=== PATIENT | male | born 1990 | race Caucasian/White ===

== ENCOUNTER 2021-09-03 06:15 | Emergency (ER) | payer OTHER, SELFPAY ==
[2021-09-03 06:18] VITALS: BP 127/57; PULSE 78; RESP 16; TEMP 35.7; O2SAT 100
--- NOTE | 2021-09-03 07:06 | ED.EYEPROB ---
HPI - Eye Problem General Chief complaint: Eye Problems <Prashant Spears DO - Last Filed: 09/03/21 07:10> Stated complaint: somethings in my eye <Prashant Spears DO - Last Filed: 09/03/21 07:10> Time Seen by Provider: 09/03/21 06:31 <Prashant Spears DO - Last Filed: 09/03/21 07:10> Source: patient <Prashant Spears DO - Last Filed: 09/03/21 07:10> Mode of arrival: ambulatory <Prashant Spears DO - Last Filed: 09/03/21 07:10> Limitations: no limitations <Prashant Spears DO - Last Filed: 09/03/21 07:10> History of Present Illness HPI Narrative: 30-year-old male presents emergency room secondary pain to his right. Is been going on since yesterday. Got worse throughout the night. He states he feels like he has something in his eye. He is not doing any work that might of caused this. He was not doing any welding. He has had flash gamez in the past this is completely different. He is got no discharge from his eye. Having significant photophobia. <Prashant Spears DO - Last Filed: 09/03/21 07:10> Related Data Allergies/adverse reactions: Allergies Allergy/AdvReac Type Severity Reaction Status Date / Time No Known Allergies Allergy Verified 09/03/21 06:21 <Prashant Spears DO - Last Filed: 09/03/21 07:10> Review of Systems Review of Systems: CONSTITUTIONAL: Denies fever, chills, or sweats. EYES: Photophobia to the right. Has no chronic eye problems. Have a significant right eye pain ENT: Denies rhinorrhea, congestion, sore throat, or otalgia. CARDIOVASCULAR: Denies chest pain, palpitations, or edema. RESPIRATORY: Denies cough or dyspnea. GASTROINTESTINAL: Denies abdominal pain, nausea, vomiting, or diarrhea. GENITOURINARY: Denies dysuria or hematuria. SKIN: Denies rash or itching. MUSCULOSKELETAL: Denies back pain, joint pain, or myalgia. NEUROLOGIC: Denies headache, numbness, or weakness. PSYCHIATRIC: Denies anxiety or depression. <Prashant Spears DO - Last Filed: 09/03/21 07:10> Exam Narrative: APPEARANCE: Well appearing, no pain or distress, well-nourished. Head normocephalic and atraumatic. EYES: PERRLA/EOMI, noted to have a metallic foreign body in the right eye at the 4 o'clock position. NOSE: Normal with no drainage EARS:TMS clear Morgan Nunez, with good light reflex. THROAT: Pharynx clear, no exudate. NECK: Supple. No adenopathy, no masses. RESPIRATORY: Airway patent, respirations nonlabored. Clear to auscultation bilaterally, no rales, rhonchi, wheezing. CARDIOVASCULAR: Regular rate and rhythm without murmurs, rubs, or gallops. ABDOMINAL: Soft, nontender, nondistended, no hepatosplenomegaly Musculoskeletal: Moves all extremities. Strength/ROM intact, No edema, No calf tenderness. NEURO: Alert. Cranial nerves II through XII intact. Normal gait. Good coordination. Nonfocal examination. SKIN:: Warm, dry. Normal Color PSYCHIATRIC: Normal affect/mood, normal interaction <Prashant Spears DO - Last Filed: 09/03/21 07:10> Course Reevaluation(s) Reevaluation #1: Patient feeling more comfortable, slightly irritated at the right eye. Patient and his significant other understood the instruction of discharge to follow-up with Dr. SUE on Sunday at 11 AM or go to the emergency room at [facility] anytime if he feels worse. <Mehul Lyon MD - Last Filed: 09/03/21 08:01> Date: 09/03/21 <Mehul Lyon MD - Last Filed: 09/03/21 08:01> Time: 07:59 <Mehul Lyon MD - Last Filed: 09/03/21 08:01> Consultations Consultation #1: DR SUE, agent contract clerk at [facility]. Patient can go home on Vigamox eyedrops, follow-up Sunday 11 AM. Or to come to the emergency room of [facility] anytime if he feels worse. <Mehul Lyon MD - Last Filed: 09/03/21 08:01> Date: 09/03/21 <Mehul Lyon MD - Last Filed: 09/03/21 08:01> Time: 08:01 <Mehul Lyon MD - Last Filed: 09/03/21 08:01> Vital Signs Vital s
== END 2021-09-03 08:05 | disposition home or self-care (01) ==
PROVIDERS: Emergency Provider Emergency Medicine
DX: T15.01XA Foreign body in cornea, right eye, initial encounter (principal); X58.XXXA Exposure to other specified factors, initial encounter
CPT/HCPCS: 65220; 99283; A9270